=== PATIENT | female | born 1965 | race Caucasian/White ===

== ENCOUNTER 2022-07-15 06:21 | Day surgery (SDC) | payer OTHER ==
[~2022-07-15] VITALS: Ht 165.1 cm; Wt 89.4 kg
[2022-07-15] MEDS ORDERED: LIDOCAINE 2% 1000 MG/50 ML VIAL INJ ONE (07:27)
[2022-07-15 07:33] LABS: BASOPHILS # (AUTO) 0.1 K/uL (0.00-0.22); BASOPHILS % (AUTO) 0.6 % (0.0-2.0); EOSINOPHILS # (AUTO) 0.2 K/uL (0-0.4); EOSINOPHILS % (AUTO) 1.9 % (0.0-4.0); HEMATOCRIT 40.1 % (36-48); HEMOGLOBIN 13.5 g/dL (12.0-16.0); LYMPHOCYTES # (AUTO) 2.6 K/uL (2.5-16.5); LYMPHOCYTES % (AUTO) 31.7 % (20.5-51.1); MEAN CORPUSCULAR HEMOGLOBIN 29 pg (27-31); MEAN CORPUSCULAR HGB CONC 34 g/dL (33-37); MEAN CORPUSCULAR VOLUME 86.4 fL (80-94); MONOCYTES # (AUTO) 0.7 K/uL (0.8-1.0); MONOCYTES % (AUTO) 8.3 % (1.7-9.3); NEUTROPHILS # (AUTO) 4.7 K/uL (1.8-7.7); NEUTROPHILS % (AUTO) 57.5 % (42.2-75.2); PLATELET COUNT (AUTO) 350 K/uL (140-450); RED BLOOD CELL COUNT(AUTO) 4.64 MIL/uL (4.20-5.40); RED CELL DISTRIBUTION WIDTH 13.5 % (11.6-13.7); WHITE BLOOD COUNT (AUTO) 8.2 K/uL (4.8-10.8)
[2022-07-15 07:34] LABS: PROTHROMBIN TIME 9.1 secs (10.8-13.4)
== END 2022-07-15 09:10 | disposition home or self-care (01) ==
LOC: MDS 06:21 → MMU 06:36 → MDS 09:10
PROVIDERS: ATTEND Internal Medicine Gastroenterology
DX: K75.81 Nonalcoholic steatohepatitis (NASH) (principal); E11.9 Type 2 diabetes mellitus without complications; K21.9 Gastro-esophageal reflux disease without esophagitis
CPT/HCPCS: 36415; 47000; 76942; 85025; 85610; 85730; J2001; Q0092

== ENCOUNTER 2023-09-29 08:16 | Day surgery (SDC) | payer OTHER ==
[~2023-09-29] VITALS: Ht 165.1 cm; Wt 89.4 kg
[2023-09-29] MEDS ORDERED: LIDOCAINE 1% 500 MG/50 ML VIAL ONE (08:50)
[2023-09-29] MEDS ORDERED: fentaNYL citrate 0.05 MG/ML VIAL ONE (08:52)
[2023-09-29] MEDS ORDERED: MIDAZOLAM 2 MG/2 ML VIAL ONE (08:52)
== END 2023-09-29 10:22 | disposition home or self-care (01) ==
LOC: MDS 08:16 → MMU 08:17 → MDS 10:22
PROVIDERS: ATTEND Internal Medicine Gastroenterology
DX: K75.81 Nonalcoholic steatohepatitis (NASH) (principal); E11.9 Type 2 diabetes mellitus without complications; E78.5 Hyperlipidemia, unspecified; Z90.49 Acquired absence of other specified parts of digestive tract; Z90.710 Acquired absence of both cervix and uterus; Z98.890 Other specified postprocedural states; Z79.899 Other long term (current) drug therapy
CPT/HCPCS: 47000; 76942; 82948; J2001; Q0092; J2250; J3010